=== PATIENT | male | born 1930 | race Caucasian/White ===

== ENCOUNTER 2020-06-28 21:30 | Emergency (ER) | payer MEDICARE, MEDICAID ==
[2020-06-28 21:43] VITALS: Wt 59.1 kg
[2020-06-28 23:28] VITALS: BP 185/80
== END 2020-06-28 23:28 | disposition home or self-care (01) ==
LOC: D.ER 21:30
DX: S61.412A Laceration without foreign body of left hand, initial encounter (principal); W19.XXXA Unspecified fall, initial encounter; Y93.9 Activity, unspecified; Y92.9 Unspecified place or not applicable